=== PATIENT | male | born 1980 | race Two or more races ===

== ENCOUNTER 2018-12-25 07:34 | Emergency (ER) | payer OTHER, SELFPAY ==
[~2018-12-25] VITALS: Ht 160 cm; Wt 82.0 kg
--- NOTE | 2018-12-25 07:52 | NUR ---
FIRST CONTACT WITH PT. Per pt, "Since Monday I have had numbness and tingling in both arms. It is like a sleeping numbness and tingling. 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 Pt denies sob or cp. NADN.
--- NOTE | 2018-12-25 08:04 | NUR ---
Pt connected to all monitors. Pt resting on gurney. Call light within reach. All safety measures in place.
[2018-12-25] MEDS ORDERED: KETOROLAC 30 MG/1 ML ONE ×2 (08:22→08:24)
--- NOTE | 2018-12-25 08:28 | NUR ---
Provided medication per EMAR. Pt appreciative.
[2018-12-25] MEDS ORDERED: KETOROLAC 30 MG/1 ML IM ONE (08:30)
[2018-12-25 08:31] LABS: BASOPHILS # (AUTO) 0.02 x10^3/uL (0-0.1); BASOPHILS % (AUTO) 1 % (0-1); EOSINOPHILS % (AUTO) 2 % (1-7); LYMPHOCYTES # (AUTO) 1.86 x10^3/uL (1-3.4); LYMPHOCYTES % (AUTO) 34 % (22-44); MD NO; MEAN CORPUSCULAR HEMOGLOBIN 30.4 pg (27.5-34.5); MEAN CORPUSCULAR HGB CONC 34.2 g/dL (33.2-36.2); MEAN PLATELET VOLUME 9.1 fL (7.4-10.4); MONOCYTES % (AUTO) 7 % (2-9); NEUTROPHILS # (AUTO) 3.06 x10^3/uL (1.8-6.8); NEUTROPHILS % (AUTO) 56 % (42-75); PLATELET COUNT 208 x10^3/uL (130-400); RED BLOOD COUNT 5.53 x10^6/uL (4.38-5.82); RED CELL DISTRIBUTION WIDTH 12.9 % (9.4-14.8)
[2018-12-25 08:39] LABS: ALANINE AMINOTRANSFERASE 61 U/L (12-78); ANION GAP 3 mmol/L (5-15); CALCIUM 8.8 mg/dL (8.5-10.1); CHLORIDE 106 mmol/L (98-107); CREATININE 1.11 mg/dL (0.7-1.3)
[2018-12-25 08:44] LABS: ALKALINE PHOSPHATASE 72 U/L (45-117); BILIRUBIN,TOTAL 1.4 mg/dL (0.2-1.0); TROPONIN I < 0.015 ng/mL (0.000-0.045)
--- NOTE | 2018-12-25 10:03 | NUR ---
Patient given discharge instructions and they have confirmed that they understand the instructions. Patient ambulatory with steady gait. Pt left with perscription, discharge paperwork, and all personal belongings.
[2018-12-25 10:05] VITALS: BP 108/75
== END 2018-12-25 10:07 | disposition home or self-care (01) ==
LOC: ED 08:26
DX: M25.531 Pain in right wrist (principal); M25.532 Pain in left wrist; M79.631 Pain in right forearm; M79.632 Pain in left forearm; R20.2 Paresthesia of skin; K21.9 Gastro-esophageal reflux disease without esophagitis
CPT/HCPCS: 29260; 36415; 71045; 80053; 83690; 84484; 85025; 93005; 96372; 99284; J1885

== ENCOUNTER → 2019-01-01 | Outpatient (CLI) | payer OTHER | END | disposition home or self-care (01) | LOC: RAD 16:17 | PROVIDERS: ATTEND Nurse Practitioner Family | DX: M54.2 Cervicalgia (principal) | CPT/HCPCS: 72050 ==

== ENCOUNTER → 2019-04-01 | Outpatient (CLI) | payer OTHER | END | disposition home or self-care (01) | LOC: CFH 15:07 | PROVIDERS: ATTEND Anesthesiology | DX: M50.10 Cervical disc disorder with radiculopathy, unspecified cervical region (principal); M47.22 Other spondylosis with radiculopathy, cervical region | CPT/HCPCS: 72141 ==